=== PATIENT | male | born 1955 | race Caucasian/White ===

== ENCOUNTER → 2018-04-03 | Outpatient (CLI) | payer OTHER ==
[~2018-04-03] MED LIST: REGADENOSON 0.4 MG/5 ML DISP.SYRIN. IV ONE
--- NOTE | 2018-04-03 17:48 | PCVCIMAG ---
APPROVED REPORT Imaging Protocol: Rest Tc-99m/Stress Tc-99m 1 day Study performed: 04/03/2018 09:37:08 Indication: CAD , Dyspnea, Submaximal SE Patient Location: Out-Patient Stress Nurse: Claudia Huang RN, Sobia Travis RN MS Tech:Blanche MaldonadoSHAISTA bossMT Ht: 5 ft 8 in Wt: 192 lbs BSA: 2.01 m2 HR: 63 bpm BP: 132/69 mmHg BMI: 29.1 Rhythm: Sinus Rhythm Medical History Medical History: HTN, Hyperlipidemia, CVD Medications: ASA, Atorvastatin, Bystolic, Triglide, HCTZ Allergies: No known drug allergies Previous Cardiac Procedures: PCI in 2008 CRISTOBAL & RCA Pretest Chest Pain Characteristics: No chest pain Exercise History: Indeterminate Meds Held (48 hrs): Bystolic Resting Data Rest SPECT myocardial perfusion imaging was performed in supine position 45 minutes following the intravenous injection of 10.4 mCi of Tc-99m Sestamibi. Time of rest injection: 909 Date: 04/03/2018 Administration Route: IV Administration Site: Right AC Pharmacologic Stress Pharmacologic stress test was performed by injecting Regadenoson 0.4 mg IV push over 10-15 seconds immediately followed by the intravenous injection of 32.9 mCi of Tc-99m Sestamibi. Time of stress injection: 1014 Date: 04/03/2018 Administration Route: IV Administration Site: Right AC Gated Stress SPECT was performed 45 minutes after stress injection. The images were gated to evaluate regional wall motion and calculate left ventricular ejection fraction. Stress Test Details Stress Test: Pharmacologic stress was paired with low level exercise. Reason for pharmacologic stress test: Prior submaximal stress tests. HRMax Heart Rate (APMHR): 158 bpm Resting HR: 63 bpmTarget HR (85% APMHR): 134 bpm Max HR Achieved: 96 bpm % of APMHR: 60 Recovery HR: 70 bpm BP Resting BP: 132/69 mmHg Max BP: 160/70 mmHg Recovery BP: 148/73 mmHg ECG Resting ECG: Sinus Rhythm, Inferior WA Stress ECG: Sinus Rhythm, Inferior WA ST Change: None Maximum ST Deviation: 0 mm Arrhythmia: None Recovery ECG: Sinus Rhythm, Inferior WA Recovery ST Change: None Recovery ST Deviation: 0 mm Recovery Arrhythmia: None Clinical Reason for Termination: Completed protocol Stress Symptoms: Dyspnea, Leg Fatigue Exercise duration: 4 min 00 sec Exercise capacity: 1.6 METs Symptoms resolved during recovery. Stress ECG Conclusion Clinical: Non-ischemic ECG: Non-ischemic Study Quality Study: Good Study Data Post stress, the left ventricular ejection was 58%.. SSS: 6 SRS: 4 SDS: 3 TID = 1.00. 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 No evidence of stress induced ischemia. 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 No evidence of stress induced ischemia. Post stress, the left ventricular ejection was 58%. No prior study available for comparison. Interpreted by: Mark Shaikh MD Electronically Approved: 04/03/2018 15:52:09 <Conclusion> Clinical: Non-ischemic ECG: Non-ischemic
== END | disposition home or self-care (01) ==
LOC: PCVCIMAG 08:54
PROVIDERS: ATTEND Internal Medicine
DX: I25.10 Atherosclerotic heart disease of native coronary artery without angina pectoris (principal); R06.09 Other forms of dyspnea; I10 Essential (primary) hypertension; E78.5 Hyperlipidemia, unspecified
CPT/HCPCS: 78452; 93017; A9500; J2785